=== PATIENT | female | born 1950 | race Caucasian/White ===

== ENCOUNTER 2016-11-24 21:03 | Emergency (ER) | payer OTHER ==
[~2016-11-24] VITALS: Ht 154.9 cm; Wt 43.8 kg
[~2016-11-24 21:03] MED LIST: ADVAIR 250-501 EACH INH; ALPRAZOLAM ER1 MG PO; AMITRIPTYLINE H10 M3 PO; AMITRIPTYLINE H25 M2 PO; AMITRIPTYLINE H25 M3 PO; BYSTOLIC 5 MG5 M1 PO; CALCIUM 500 +1 EAC5 PO; CIPROFLOXACIN500 M1 PO; CITRATE OF MAG296 ML PO; COLACE100 MG PO; DICYCLOMINE HCL10 MG PO; EXCEDRIN CAPLE1 EACH; FLAGYL500 MG PO; FOSAMAX 70 MG T70 M1 PO; LISINOPRIL10 MG PO; LISINOPRIL20 MG PO; METHIMAZOLE10 MG PO; NORCO 5-325 TA1 EACH PO; NORVASC 5 MG TAB5 MG; OMEPRAZOLE40 MG PO; PERCOCET 5-3251 EACH PO; PERCOCET 7.5-31 EACH PO; PHENERGAN 25 MG25 M1 PO; PROAIR HFA8.5 GM INH; PROMS25 WY RECTAL; TAPAZOLE5 MG PO; VALIUM5 MG PO; VENTOLIN HFA 1818 GM INH; XANAX1 MG PO; ZANAFLEX4 M1 PO; ZOFRAN ODT4 MG PO
[2016-11-24 22:35] LABS: ABSOLUTE NEUTROPHILS 6.7 thou/uL (1.4-8.2); BASOPHILS 0.9 % (0.0-2.0); EOSINOPHILS 2.5 % (0.0-3.0); HEMATOCRIT 40.7 % (37.0-47.0); HEMOGLOBIN 13.8 gm/dL (12.0-15.0); LYMPHOCYTES 28.4 % (24.0-44.0); MCH 30.5 pg (26.0-34.0); MCHC 33.9 g/dL (28.0-37.0); MONOCYTES 7.4 % (1.0-8.0); PLATELET COUNT 301 thou/uL (150-400); POLYS 60.8 % (36.0-66.0); RBC 4.52 mil/uL (4.20-5.00); RDW 14.2 % (10.5-14.5)
[2016-11-24 22:37] LABS: MANUAL DIFF NO
[2016-11-24 22:50] LABS: ANION GAP 8 mmol/L (7-16); BUN 8 mg/dL (7-18); CALCIUM 8.4 mg/dL (8.5-10.1); CHLORIDE 110 mmol/L (98-107); CO2 26 mmol/L (21-32); CREATININE 0.8 mg/dL (0.6-1.0); GLUCOSE 81 mg/dL (74-106); POTASSIUM 3.8 mmol/L (3.5-5.1); SODIUM 144 mmol/L (136-145)
[2016-11-24 22:54] LABS: ALBUMIN 3.5 g/dL (3.4-5.0); ALKALINE PHOSPHATASE 97 U/L (46-116); SGOT 13 U/L (15-37); SGPT 11 U/L (30-65); TOTAL BILIRUBIN 0.2 mg/dL (<0.1-1.0); TOTAL PROTEIN 7.1 g/dL (6.4-8.2)
[2016-11-24] MEDS ORDERED: ZOFRAN ODT4 MG PO (23:04)
[2016-11-24] MEDS ORDERED: DOXYCYCLINE 10100 MG PO (23:04)
[2016-11-24] MEDS ORDERED: PREDNISONE 20 M20 MG PO (23:04)
[2016-11-24] MEDS ORDERED: PERCOCET 5-3251 EACH PO (23:04)
[2016-11-24 23:30] VITALS: BP 128/81
== END 2016-11-24 23:30 | disposition home or self-care (01) ==
LOC: ER 21:03
PROVIDERS: Emergency Medicine
DX: R10.30 Lower abdominal pain, unspecified (principal); R10.13 Epigastric pain; J18.9 Pneumonia, unspecified organism; J44.1 Chronic obstructive pulmonary disease with (acute) exacerbation; R19.7 Diarrhea, unspecified; G43.909 Migraine, unspecified, not intractable, without status migrainosus; I10 Essential (primary) hypertension; T79.A0XA Compartment syndrome, unspecified, initial encounter; Z88.0 Allergy status to penicillin; F17.210 Nicotine dependence, cigarettes, uncomplicated